=== PATIENT | female | born 1960 | race Caucasian/White ===

== ENCOUNTER → 2017-02-21 10:12 | Outpatient (CLI) | payer OTHER | END | disposition home or self-care (01) | LOC: D.MRI 10:12 | DX: M25.562 Pain in left knee (principal) ==

== ENCOUNTER 2017-03-09 05:00 | Day surgery (SDC) | payer OTHER ==
[2017-03-08 11:01] LABS: HEMATOCRIT 47.2 % (36.0-48.0); HEMOGLOBIN 15.7 g/dL (12-16); MCH 30.4 pg (26.0-34.0); MCHC 33.3 g/dL (31.0-37.0); MCV 91.3 fL (80.0-100.0); MEAN PLATELET VOLUME 9.3 fL (7.4-10.4); RBC 5.17 10x6/uL (4.00-5.40); RDW 13.5 % (11.5-14.5); WBC 7.6 10x3/uL (4.8-10.8)
[2017-03-08 11:13] LABS: CALC OSMOLALITY 277 mosm/kg (275-300); CALCIUM 9.1 mg/dL (8.5-10.1); CARBON DIOXIDE 30.1 mmol/L (21.0-32.0); CHLORIDE - SERUM 103 mmol/L (98-107); CREATININE - SERUM 0.7 mg/dL (0.6-1.3); GLUCOSE 101 mg/dL (74-106); POTASSIUM - SERUM 4.2 mmol/L (3.5-5.1); SODIUM 139 mmol/L (136-145); UREA NITROGEN 12 mg/dL (7-18); eGFR NON AFRICAN AMERICAN > 90 mL/min (90-120)
[~2017-03-09] VITALS: Ht 160 cm; Wt 65.8 kg
[~2017-03-09 05:00] MED LIST: PROTONIX40 MG PO; TIROSINT88 MCG PO; ZOCOR40 MG PO
[2017-03-09 06:04] VITALS: BP 142/62; Ht 160 cm; Wt 65.8 kg
[2017-03-09] MEDS ORDERED: PERCOCET 7.5/321 TAB PO (08:13)
--- NOTE | 2017-03-09 17:05 | OP ---
PATIENT NAME: JOSE JONES MEDICAL RECORD: [id number] :60 LOCATION:D.OPS ADMISSION DATE: SURGEON: NISH PIERRE DO DATE OF OPERATION: 03/09/2017 PROCEDURE PERFORMED: Left knee arthroscopy with partial medial and partial lateral meniscectomies. PREOPERATIVE DIAGNOSIS: Left knee pain with meniscal tear. 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 INDICATIONS: Ms. Jones is a 57-year-old female who presented to the office with knee pain. She was treated conservatively initially and then an MRI was done that showed meniscal tears and I had discussion with her about getting trimmed out to prevent any further pain, catching or locking. She decided that was the route she wanted to take and was consented for surgery. SURGEON: Nish Pierre M.D. SOCIAL MEDIA INTERN: Zuly Pichardo, advanced nurse practitioner. PROCEDURE: The patient was taken to the operative suite, placed in supine position, given preoperative antibiotics 1 gram of Ancef. A timeout was performed. Everyone was in agreement the left leg is the correct leg and this correct patient and correct procedure. The patient's left leg was prepped and draped in sterile fashion and the portal sites were then injected with 0.25% Marcaine with epinephrine over the medial and lateral portals on the anterior knee. The lateral portal was established first with an 11-blade scalpel and a trocar was placed into the knee in the suprapatellar pouch. Camera was then inserted there and diagnostic arthroscopy then began, first in suprapatellar pouch and along the patella noting very minimal if any chondral damage. Then, the scope was then taken to the lateral gutter and not seen any loose bodies and then in the medial gutter, again no loose bodies. The knee was then flexed and into the medial joint line. Chondromalacia grade II was seen on the medial femoral condyle at that time as well as a meniscal tear in the posterior third of the medial meniscus. Medial portal was then established with an 11-blade scalpel and the meniscus was probed, revealing the tear and ensuring that there is no more posterior as far as the tear on the posterior horn and the meniscus was stable. However, the tear was seen in the posterior third to middle third of the medial meniscus. This was trimmed out using upbiter and then a shaver and the chondromalacia was also cleaned up with a shaver. The ACL was then probed and seen to be stable and the lateral compartment of the knee was entered with the knee in the [id number] position. Probe was entered and in the posterior third of the lateral meniscus a large tear was seen in the meniscus that probed and was seen to be very unstable. The straight biter was then used to bite out the tear. The meniscal root was seen to be stable. The posterior meniscal root and once the tear was trimmed out and freshened up with the shaver and probed to be in a stable spot. Knee was then flexed once again and the patella seemed to be engaging the trochlea appropriately. Back in the lateral compartment, the grade II chondromalacia was seen on the tibial plateau, was also freshened up with a shaver. The patella seemed to be engaged onto the trochlea very well not subluxing and suprapatellar pouch again was then entered, OPERATIVE REPORT [id number] JOSE JONES looking for any loose bodies and none was seen. The scope was then withdrawn and the excess fluid was removed from the knee. A 4-0 Monocryl was used to cover each port into the portal sites in an inverted interrupted fashion. Steri-Strips were placed over them. Adaptic, 4 x 4s, ABDs, Webril and Jarrett wrap were then placed on the patient over the knee. A SHAUN stocking was placed to the knee. Blood loss was minimal. The patient was awakened and taken to recovery in stable condition. 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
== END 2017-03-09 12:10 | disposition home or self-care (01) ==
LOC: D.OPS 05:00 → D.PAN 07:30 → D.OPS 12:10
PROVIDERS: Anesthesiology
DX: S83.282A Other tear of lateral meniscus, current injury, left knee, initial encounter (principal); S83.242A Other tear of medial meniscus, current injury, left knee, initial encounter; X58.XXXA Exposure to other specified factors, initial encounter; M94.262 Chondromalacia, left knee; E03.9 Hypothyroidism, unspecified; K21.9 Gastro-esophageal reflux disease without esophagitis; K44.9 Diaphragmatic hernia without obstruction or gangrene; I49.9 Cardiac arrhythmia, unspecified; Z01.812 Encounter for preprocedural laboratory examination

== ENCOUNTER 2020-11-08 11:00 | Outpatient (CLI) | payer OTHER ==
[2017-03-09 06:04] VITALS: BMI 25.7
[~2020-11-08 11:00] MED LIST changes: +PERCOCET 7.5/321 TAB PO
== END 2020-11-08 23:59 | disposition home or self-care (01) ==
LOC: D.MAMMO 11:00
PROVIDERS: ATTEND Nurse Practitioner Family
DX: R92.8 Other abnormal and inconclusive findings on diagnostic imaging of breast (principal)

== ENCOUNTER → 2020-11-18 10:14 | Outpatient (CLI) | payer OTHER ==
[2017-03-09 06:04] VITALS: BMI 25.7
== END | disposition home or self-care (01) ==
LOC: D.US 10:14
PROVIDERS: ATTEND Nurse Practitioner Family
DX: R92.8 Other abnormal and inconclusive findings on diagnostic imaging of breast (principal)